=== PATIENT | female | born 1995 | race Caucasian/White ===

== ENCOUNTER 2017-08-12 16:14 | Emergency (ER) | payer OTHER ==
[~2017-08-12] VITALS: Ht 172.7 cm; Wt 71.2 kg
[~2017-08-12 16:14] MED LIST: FLEXERIL5 MG PO; NAPROSYN500 MG PO
[2017-08-12 16:23] VITALS: BP 117/95
[2017-08-12] MEDS ORDERED: PREDNISONE10 MG PO (18:10)
[2017-08-12] MEDS ORDERED: FLEXERIL10 MG PO (18:10)
[2017-08-12] MEDS ORDERED: LORTAB 5-325 M1 EACH PO (18:10)
== END 2017-08-12 18:30 | disposition home or self-care (01) ==
LOC: EME 16:14
DX: M54.31 Sciatica, right side (principal); S39.012A Strain of muscle, fascia and tendon of lower back, initial encounter; X50.9XXA Other and unspecified overexertion or strenuous movements or postures, initial encounter
CPT/HCPCS: 99281; 99284; J7512